=== PATIENT | male | born 1995 | race Hispanic/Latino ===

== ENCOUNTER 2019-04-22 15:08 | Emergency (ER) | payer SELFPAY ==
[~2019-04-22] VITALS: Ht 165.1 cm; Wt 81.6 kg
[2019-04-22] MEDS ORDERED: HYDROMORPHONE 1MG/1ML INJ IV STA (15:11)
[2019-04-22] MEDS ORDERED: LORAZEPAM INJ 2 MG/ML VIAL IV ONE (16:30)
--- NOTE | 2019-04-22 17:01 | Diagnostic Imaging Report ---
EXAMINATION: SHOULDER RIGHT COMPLETE INDICATION: Trauma COMPARISON: None FINDINGS: Anterior shoulder dislocation. No acute displaced fracture. The visualized portions of the right lung are clear. IMPRESSION: Anterior shoulder dislocation. Signed by: Brian Herrera MD on 04/22/2019 4:57 PM
[2019-04-22] MEDS ORDERED: TYLENOL WITH C1 EACH PO (17:50)
--- NOTE | 2019-04-22 18:21 | Diagnostic Imaging Report ---
SHOULDER RIGHT 1 VIEW - 3 views HISTORY: Dislocated shoulder. COMPARISON: April 22, 2019 at 1603 hours. FINDINGS: Bones: No acute displaced fracture. Osseous alignment is within normal limits. Joints: Status post closed reduction of previously present anterior shoulder dislocation with near-anatomic alignment. Soft tissues: The soft tissues appear unremarkable. IMPRESSION: Status post closed reduction of previously present anterior shoulder dislocation. Signed by: Dr. Filippo Ring M.D. on 04/22/2019 6:17 PM
[2019-04-22 18:44] VITALS: BP 129/85
== END 2019-04-22 18:45 | disposition home or self-care (01) ==
LOC: ER 15:08
DX: S43.014A Anterior dislocation of right humerus, initial encounter (principal); X50.1XXA Overexertion from prolonged static or awkward postures, initial encounter; Y99.0 Civilian activity done for income or pay
CPT/HCPCS: 23650; 73020; 73030; 99284; J1170; J2060